=== PATIENT | male | born 1955 | race Caucasian/White ===

== ENCOUNTER → 2023-09-05 15:50 | Outpatient (REF) | payer MEDICARE, OTHER, SELFPAY | LOC: HWRAD 15:50 | PROVIDERS: ATTENDING PHYSICIAN Internal Medicine Rheumatology; FAMILY PHYSICIAN Family Medicine | DX: M19.079 Primary osteoarthritis, unspecified ankle and foot (principal) | CPT/HCPCS: 73630 ==

== ENCOUNTER 2023-09-29 10:50 | Inpatient (IN) | payer MEDICARE, OTHER, SELFPAY ==
[2023-09-29] VITALS (27 sets, daily range): BP systolic 90–142; BP diastolic 72–111
--- NOTE | 2023-09-29 06:32 | ED.GENMED ---
History of Present Illness
General
Chief Complaint: Heart Rate Problem
Source: patient and family
Exam Limitations: none
Time Seen by Provider: 09/29/23 06:31
Travel History
Have you had any contact with someone who has COVID-19?: No
Do you have any symptoms of coronavirus? Fever > 100 degrees, chills, cough, shortness of breath, sore throat, loss of taste or smell, muscle aches, or headache?: No
History of Present Illness
History of Present Illness:
Relatively sudden onset of heart racing palpitations and chest pressure lightheadedness at 5-5 30 this morning. No history of similar episodes. Remote history of MD with 3 cardiac stents. Also history of a ablation for PVCs. Patient states he
went into cardiac arrest during his MD and also went into cardiac arrest during a cardiac cath.
Past History
Past History
ED Past Medical History: Arrthythmia, CAD, Hypercholesterolemia and MD
ED Past Surgical History: Cardiac (Cardiac catheterization) and Other (Hernia repair, retinal detachment, cataracts)
Social History
Employment: Employed
Review of Systems
Review of Systems
All Other Systems: Not applicable
Constitutional: Denies fever
Respiratory: Reports no symptoms
ABD/GI: Reports no symptoms
Phy Exam
Physical Exam
Physical Exam:
GENERAL: Alert and oriented in no apparent distress
EYE: Orbits normal.
NECK: Supple, no thyroid palpable
ENT: Pharynx without erythema
CARDIAC: Irregular irregular. Tachycardic
LUNGS: Clear breath sounds,normal
ABDOMEN: Soft, without focal tenderness or distention
NEUROLOGICAL: Alert and oriented , grossly non-focal
SKIN: Warm and dry, no rash or lesion, no discoloration, skin intact.
MUSCULOSKELETAL: No edema,no deformity.Good color
PSYCH: Normal and appropriate interaction.
Course
Orders/Labs/Results
Orders:
Orders
09/29/23 06:23
ECG [Electrocardiogram (*1)] Urgent
Reason for Study: Palpitations
EKG- Treatment ONCE
09/29/23 06:34
Cardiac Monitoring- Treatment ONCE
IV Insert/Care/Rem.- Treatment PRN
09/29/23 06:37
Complete Blood Count/With Diff Urgent
Comprehensive Metabolic Panel Urgent
NT-proBNP Urgent
TSH Reflex To Free T4 Urgent
Comment: ADD ON
Troponin I Urgent
09/29/23 06:44
Add On- LAB Urgent
Tests Added?: tsh reflex t4
09/29/23 07:12
Diltiazem 125 mg/125 ml Nss [Cardizem] 125 mg in 125 ml IV NOW
Initial dose in mg/hr, then titrate:: 5
Titrate to keep:: Heart rate 80-100 bpm
Titrate by mg/hr:: 5 mg/hr
Frequency of titrations (minutes):: 15
Maximum dose in mg/hr:: 15
Diltiazem HCl [Cardizem] 10 mg IV NOW STA
09/29/23 07:56
CXR Port [CR Chest Portable - 1 View] Urgent
Comment:
Reason For Exam: sob afib
Reason Study Needs to be Portable: Unable to Transport
09/29/23 09:08
Furosemide [Lasix] 20 mg IV NOW STA
09/29/23 10:34
Admit/Transfer Patient As Directed
Co-Sign Provider:
Level of Care: Inpatient admission
Assign to:: IVU
Physician / Group: chacorta boyce
Diagnosis: New onset atrial fibrillation, possible CHF
Reason for Hospitalization: New onset atrial fibrillation, possible CHF
Expected length of stay greater than two midnights?: Yes
ELOS- Estimated Length of Stay in days: 3
I certify the patient meets the requirements for IP care: Yes
09/29/23 10:37
Code Status As Directed
Resuscitation Status: Full Code
09/29/23 10:39
EKG [Electrocardiogram (*1)] Urgent
Reason for Study: Atrial Fibrillation
Echo 2D/M Color Dop w Definity Routine
Reason for Exam: New onset A-fib
CARDIOLOGY CONSULT Urgent
Consulting Provider: Storm Flores
Was physician already notified: Yes
Reason for consult: Contacted by ED
EKG- Treatment ONCE
09/29/23 10:45
Diltiazem 125 mg/125 ml Nss [Cardizem] 125 mg in 125 ml IV PER PROTOCOL
Currently infusing. Continue current dose and titrate:: Yes
Titrate to keep:: Heart rate 80-100 bpm
Titrate by mg/hr:: 5 mg/hr
Frequency of titrations (minutes):: 15
Maximum dose in mg/hr:: 15
09/29/23 11:00
Flush (0.9% Sodium Chloride) [Flush (Nss)] See Dose Instructions IV PER PROTOCOL
09/29/23 11:44
Troponin I Q4H
09/29/23 14:45
Troponin I Q4H
Abnormal Lab Results
09/29/23
06:37
RBC 4.36 L 10^6/uL
(4.70-6.10)
MCV 94.7 H fL
(80.0-94.0)
MCH 31.4 H pg
(27.0-31.0)
MPV 10.5 H fL
(7.4-10.4)
Absolute Lymphs (auto) 1.0 L 10^3/uL
(1.2-3.4)
Neutrophils % 76.1 H %
(42.2-75.2)
Lymphocytes % 15.7 L %
(20.5-51.1)
Chloride 109 H mmol/L
(98-107)
BUN 25 H mg/dl
(9-20)
Glucose 132 H mg/dl
(70-99)
09/29/23 06:37
09/29/23 06:37
Vital Signs
Initial and Last Documented VS:
Initial Vital Signs
Temp Pulse Resp BP Pulse Ox
98.2 F 61 16 142/83 98
09/29/23 06:19 09/29/23 06:19 09/29/23 06:19 09/29/23 06:19 09/29/23 06:19
Last Documented Vital Signs
Temp Pulse Resp BP Pulse Ox
98.2 F 91 12 134/108 92
09/29/23 06:19 09/29/23 12:30 09/29/23 12:30 09/29/23 11:15 09/29/23 12:30
MDM/Problems Addressed
Differential Diagnosis Includes:
Atrial fibrillation/RVR. Decision on rate control ultimately cardioversion. Workup in progress. Discussed with cardiology.
*Pulse Oximetry
Patient hypoxic: no
*EKG
Interpreted by ED Provider?: Yes
Interpretation: abnormal
Comparison EKG: changes noted
Heart Rate: 158
Rate: tachycardiac
Rhythm: a-fib
[place]: normal axis
Interval: normal interval
QRS Pattern: normal QRS
Ischemia: non-specific ST changes
*Critical Care Note
Total Time (30-74mins, 75-104mins- exclusive of procedures): 45
Data Reviewed
Review of Other/Old Records Reveals: Labs, Records and Testing
Update Note
Update Note:
0715.... Discussed with cardiology. Start Cardizem and Cardizem drip and they will evaluate
0758.... Blood pressure dropped to 90 after increasing the Cardizem to 10 mg/h. We will decrease it back to 5 mg/h give a fluid bolus. Chest x-ray pending.
ED Attending Note
-
Portions of this chart may have been created with voice recognition software.� Occasional wrong word or��sound alike� substitutions may have occurred due to the inherent limitations of voice recognition software.
Discharge Plan
Departure
Patient Disposition: Admit
Date of Disposition: 09/29/23
Time of Disposition: 09:08
Presentation/result/management discussed w/ accepting MD/DO: Cardiology
Discharge Problem:
Atrial fibrillation/RVR, Mild CHF, Chest tightness/history of CAD
Interventions
Interventions:
*Risk Screen - Suicide Last Done: 09/29/23 06:19
*Neglect/Abuse Screening Last Done: 09/29/23 06:19
*ED COVID-19 Vaccine History Last Done: 09/29/23 06:19
ED- Cardiac Assessment Last Done: 09/29/23 06:40
ED- Pulmonary Assessment Last Done: 09/29/23 06:40
[2023-09-29 06:56] LABS: % Basophils 0.2 % (0-2); % Eosinophils 0.2 % (0-6); % Immature Granulocytes 0.5 % (0-0.5); % Lymphocytes 15.7 % (20.5-51.1); % Monocytes 7.3 % (1.7-9.3); % Neutrophils 76.1 % (42.2-75.2); Absolute Monocytes 0.4 10^3/uL (0.1-0.6); Absolute Neutrophils 4.6 10^3/uL (1.4-6.5); Hematocrit 41.3 % (39.0-52.0); Hemoglobin 13.7 g/dL (13.0-18.0); Mean Corp Hgb Conc. 33.2 g/dL (33.0-37.0); Mean Corpuscular Hgb 31.4 pg (27.0-31.0); Mean Corpuscular Volume 94.7 fL (80.0-94.0); Mean Platelet Volume 10.5 fL (7.4-10.4); Nucleated Red Blood Cells % 0 % (-); Platelet Count 135 10^3/uL (130-400); Red Blood Cell Count 4.36 10^6/uL (4.70-6.10); Red Cell Dist. Width 14.4 % (11.5-14.5)
[2023-09-29 07:08] LABS: ALT (SGPT) 37 U/L (0-50); AST (SGOT) 34 U/L (17-59); Albumin 3.5 g/dl (3.5-5.0); Alkaline Phosphatase 105 U/L (38-126); Blood Urea Nitrogen 25 mg/dl (9-20); Calcium 9.3 mg/dl (8.4-10.2); Carbon Dioxide 24 mmol/L (22-30); Chloride 109 mmol/L (98-107); Estimated Creatinine Clearance 91 ml/min; Glucose 132 mg/dl (70-99); Potassium 4.3 mmol/L (3.5-5.1); Sodium 138 mmol/L (135-145); Total Bilirubin 0.7 mg/dl (0.2-1.3); Total Protein 6.3 g/dl (6.3-8.2); eGFR > 60.00
[2023-09-29 07:19] LABS: NT-proBNP 1090 pg/ml; Troponin I < 0.012 ng/ml
[2023-09-29] MEDS: CARDIZEM 10 MG IV (07:20)
[2023-09-29] MEDS: CARDIZEM 125 IV (07:24)
[2023-09-29 07:39] LABS: TSH Reflex To Free T4 2.44 uIU/ml (0.47-4.68)
[2023-09-29] MEDS: LASIX 20 MG IV (10:03)
--- NOTE | 2023-09-29 10:39 | HPS.HSE ---
Family Physician
-
Family Physician: Tomy Villarreal
Chief Complaint
-
Palpitations, chest pain
History of Present Illness
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 However per patient he has been feeling chest
discomfort from past few days and has been taking multiple nitros. Denies any radiation. Denies any shortness of breath. Denies any abdominal pain, nausea, vomiting, diarrhea, constipation. In the ED today he was found to be in atrial
fibrillation with RVR. Currently denies any fever/chills.
Medical History
Past Medical History
Past Medical History: Reports Arrhythmia, CAD, HTN, Hypercholesterolemia and CA
Past Surgical History: Reports Cardiac and Other (Hernia repair, cataract, retinal detachment)
Social History
Tobacco: Non-smoker
Family History
Family History: Not pertinent
Allergies / Home Medications
Allergies reflects when Allergies were last updated in [employer].
Home Medications with original date entered in [employer]
Allergy/Medication List:
Allergies
Allergy/AdvReac Type Severity Reaction Status Date / Time
streptokinase Allergy fever,peric Verified 09/29/23 06:18
arditis
Home Medications
atorvastatin 80 mg tablet 80 mg PO QPM High Cholesterol 05/28/14
coenzyme Q10 100 mg capsule (CoQ-10) 100 mg PO QPM Supplement 05/28/14
aspirin 81 mg tablet,delayed release 81 mg PO DAILY Blood Clot Prevention/Tx 11/22/14
nitroglycerin 0.4 mg sublingual tablet 0.4 mg sublingual G8VO4OHP PRN chest pain 11/22/14
ramipril 5 mg capsule 5 mg PO QPM Blood Pressure 11/22/14
alirocumab 75 mg/mL subcutaneous pen injector (Praluent Pen) 150 mg SQ Q2W High Cholesterol 06/05/20
allopurinol 300 mg tablet 300 mg PO QPM Gout 06/05/20
cholecalciferol (vitamin D3) 50 mcg (2,000 unit) tablet 2,000 units PO DAILY Supplement 06/05/20
resveratrol 100 mg capsule 100 mg PO DAILY Supplement 06/05/20
colchicine 0.6 mg capsule 0.6 mg PO QPM Gout 12/20/22
isosorbide mononitrate 120 mg tablet,extended release 24 hr 120 mg PO DAILY Heart Condition 12/20/22
lactobacillus combination no.4 3 billion cell capsule (Probiotic) 3,000 mmu cells PO DAILY Gastrointestinal Issue 05/16/23
metoprolol succinate 100 mg tablet,extended release 24 hr 100 mg PO DAILY Heart Disease/Condition 05/16/23
prednisone 20 mg tablet 20 mg PO DAILY PRN arthritis flare ups 05/16/23
tamsulosin 0.4 mg capsule (Flomax) 0.4 mg PO BID Urinary Issue 05/16/23
multivitamin 1 tab PO DAILY Supplement 05/30/23
fluticasone propionate 50 mcg/actuation nasal spray,suspension 1 spray intranasal DAILY Congestion 09/29/23
levothyroxine 25 mcg tablet (Synthroid) 25 mcg PO HS Thyroid 09/29/23
naproxen sodium 220 mg tablet (Aleve) 220 mg PO [id number] PRN mild pain 09/29/23
pantoprazole 40 mg tablet,delayed release 40 mg PO DAILY Gastrointestinal Issue 09/29/23
psyllium 1 packet PO DAILY Constipation 09/29/23
Review of Systems
-
History Source: Patient
A 12 point ROS was completed and negative except as noted: Yes
Cardiac: Reports Chest Pain and Palpitations
Physical Exam
Vital Signs
Vital Signs
Temp Pulse Resp BP Pulse Ox
98.2 F 97 17 123/95 94
09/29/23 06:19 09/29/23 10:15 09/29/23 10:15 09/29/23 10:15 03/28/24 10:15
Physical Exam
General: Well Nourished and No Apparent Distress
HEENT: NormoCephalic and Moist mucous membranes
Respiratory: Clear and Non Labored Respirations; No Wheezes
Cardiac: S1/S2, Irregular Rhythm and Tachycardia
Breast: Deferred by me
GI: Soft, Non Tender, Non Distended and Normal Bowel Sounds
Rectal: Deferred by Provider
Genito-urinary: No Lennon
Musculoskeletal: Edema, Left Lower Extremity and Edema, Right Lower Extremity
Neuro: Awake, Alert, Oriented and AO x 3
Psych: Calm and Intact Judgment/Insight
Laboratory Results
-
09/29/23 06:37
09/29/23 06:37
Laboratory Results
Total Bilirubin 0.7 mg/dl (0.2-1.3) 09/29/23 06:37
AST 34 U/L (17-59) 09/29/23 06:37
ALT 37 U/L (0-50) 09/29/23 06:37
Alkaline Phosphatase 105 U/L (38-126) 09/29/23 06:37
Troponin I < 0.012 ng/ml 09/29/23 06:37
Data Reviewed
-
Lab Data: Labs Reviewed by me and Discussed with Patient
Impression/Plan
-
New onset atrial fibrillation with RVR
Currently on diltiazem drip
Cardiology consulted in ED; seen by Dr Flores per ER
TSH wnl
CHADVASC 3 ; hold starting heparin, defer to cardiology
Check echo
Hold metoprolol
Chest pain; r/o ACS
trend trops
nitro prn
New onset CHF; unknown EF
check echo
likely 2/2 afib
last echo in 2022 with preserved EF
IV lasix given in ED; cw IV lasix
hx of PVC with recent ablation
hx of CA s/p 3 stents
cw aspirin
History of hypertension
Continue with Imdur, lisinopril
History of Bechet's
History of gout
On allopurinol, colchicine
hx of hypothyroidism
DVTppx
heparin
Full code
I spent a total of 77 minutes with the patient or on the floor. More than 50% of this time involved counseling and coordination of care.
[2023-09-29 12:19] LABS: Troponin I < 0.012 ng/ml
--- NOTE | 2023-09-29 13:21 | W.PN.CD ---
Today's Communication / Plan
-
Consult dictated
Will need evaluation of pericardial effusion,
- may be best to tap it
- and then in 2 weeks if no recurrence of effusion add Eliquis
Double metoprolol (AFib and angina control)
Pt prefers to seek early AFib ablation which is very reasonable
Impression / Plan
-
New PAF
New large pericardial effusion
Chronic CAD with stable angina
Severe hyperlipidemia
Prior PVC ablation, 05/30/2023
Physical Exam
Vital Signs/Labs
Vital Signs
Temp Pulse Resp BP Pulse Ox
98.2 F 91 12 134/108 92
09/29/23 06:19 09/29/23 12:30 09/29/23 12:30 09/29/23 11:15 09/29/23 12:30
09/28/23 09/29/23 09/30/23
06:59 06:59 06:59
Actual Weight 94.9 kg
09/29/23 06:37
09/29/23 06:37
APTT Cancelled 09/29/23 12:34
09/29/23
06:37
Kbj-[id number] Pept 1090
LAB Results
09/29/23 09/29/23
06:37 11:44
Troponin I < 0.012 < 0.012
Data Reviewed
-
Date of Service: September 29, 2023
--- NOTE | 2023-09-29 14:00 | PTCARENOTE ---
pt report received from ER, oriented x4. SR w/ PVCs on the monitor, HR 90s. cardizem gtt @5mg/hr. SBP 120s. palpable pulses. +1/+2 ankle edema, R>L. pt states that is his baseline. pt on RA, 95-96% POX. lungs clear. pt abdomen s/n, +BS. denies n/v.
denies CP or SOB. PIV. admission interview completed. see worklist for VS, I&O, and assessment.
--- NOTE | 2023-09-29 14:20 | W.PN.UPDATE ---
Update Note
Progress Note Update
Discussed with patient and interventional cardiology. Plan for pericardiocentesis in AM. Increase colchicine to twice daily.
[2023-09-29] MEDS: COLCHICINE 0.599999999999999978 MG PO ×2 (14:39→20:17)
[2023-09-29 15:56] LABS: Troponin I < 0.012 ng/ml
--- NOTE | 2023-09-29 17:17 | CM ---
spoke to pt in room, he is prev indep, lives with his partner in a 1 story home with no steps to enter. he denies any dc planning needs or dme's. plan is for dc to home when medically stable.
[2023-09-29] MEDS: ZYLOPRIM 300 MG PO (17:27)
[2023-09-29] MEDS: ALTACE 5 MG PO (17:27)
[2023-09-29] MEDS: LIPITOR 80 MG PO (17:27)
[2023-09-29] MEDS: FLOMAX 0.400000000000000022 MG PO (20:17)
[2023-09-29] MEDS: TOPROL XL 100 MG PO (20:18)
[2023-09-29] MEDS: SYNTHROID 25 MCG PO (22:25)
--- NOTE | 2023-09-29 22:55 | PTCARENOTE ---
assumed care of patient at the change of shift. AAOx3. independent in the room. denies any cp/sob. SR on tele with frequent PVCs, bigeminy at times. patient states feeling PVCs. HR 80s-90s. bp stable. cardizem gtt maintained at 5 ml/hr. reviewed
plan of care with patient and verbalized understanding. NPO at midnight for a pericardiocentesis in AM. call aden within reach. calls appropriately.
[2023-09-30] VITALS (7 sets, daily range): BP systolic 98–121; BP diastolic 74–88; BMI 28.8
[2023-09-30] MEDS: CARDIZEM 125 IV (03:59)
[2023-09-30 04:37] LABS: % Basophils 0.3 % (0-2); % Eosinophils 2.4 % (0-6); % Immature Granulocytes 0.3 % (0-0.5); % Lymphocytes 25.6 % (20.5-51.1); % Monocytes 12.8 % (1.7-9.3); % Neutrophils 58.6 % (42.2-75.2); Absolute Eosinophils 0.1 10^3/uL (0-0.7); Absolute Lymphocytes 1.5 10^3/uL (1.2-3.4); Absolute Monocytes 0.8 10^3/uL (0.1-0.6); Absolute Neutrophils 3.4 10^3/uL (1.4-6.5); Hematocrit 41.6 % (39.0-52.0); Hemoglobin 13.8 g/dL (13.0-18.0); Mean Corp Hgb Conc. 33.2 g/dL (33.0-37.0); Mean Corpuscular Hgb 31.3 pg (27.0-31.0); Mean Corpuscular Volume 94.3 fL (80.0-94.0); Mean Platelet Volume 10.1 fL (7.4-10.4); Nucleated Red Blood Cells % 0 % (-); Platelet Count 128 10^3/uL (130-400); Red Blood Cell Count 4.41 10^6/uL (4.70-6.10); Red Cell Dist. Width 14.4 % (11.5-14.5); White Blood Cell Count 5.9 10^3/uL (4.8-10.8)
[2023-09-30 04:58] LABS: Blood Urea Nitrogen 19 mg/dl (9-20); Calcium 8.8 mg/dl (8.4-10.2); Carbon Dioxide 26 mmol/L (22-30); Chloride 104 mmol/L (98-107); Estimated Creatinine Clearance 81 ml/min; Glucose 109 mg/dl (70-99); Potassium 3.7 mmol/L (3.5-5.1); Sodium 139 mmol/L (135-145); eGFR > 60.00
[2023-09-30] MEDS: FLOMAX 0.400000000000000022 MG PO ×2 (08:03→19:33)
[2023-09-30] MEDS: VISBIOME 1 CAP PO (08:03)
[2023-09-30] MEDS: ASPIR LOW (ENTERIC COATED) 81 MG PO (08:03)
[2023-09-30] MEDS: IMDUR (EXTENDED RELEASE) 120 MG PO (08:03)
[2023-09-30] MEDS: TOPROL XL 100 MG PO ×2 (08:03→19:33)
[2023-09-30] MEDS: PROTONIX 40 MG PO (08:03)
[2023-09-30] MEDS: THERAGRAN 1 TABLET PO (08:03)
[2023-09-30] MEDS: VITAMIN D3 (cholecalciferol) 50 MCG PO (08:04)
[2023-09-30] MEDS: COLCHICINE 0.599999999999999978 MG PO ×2 (08:04→19:33)
[2023-09-30] MEDS: METAMUCIL, KONSYL PO (08:15)
--- NOTE | 2023-09-30 09:07 | PTCARENOTE ---
received patient this am, IV Cardizem @ 5cc/hr via left arm, site reddened, IV team started new INT in left arm, IV Cardizem infusing without difficulties. patient remains NPO for pericardial drain this am.
[2023-09-30] MEDS: PERCOCET 5/325 2 TABLET PO ×3 (10:10→22:35)
[2023-09-30] MEDS: MOTRIN 600 MG PO ×2 (10:10→19:33)
--- NOTE | 2023-09-30 10:17 | ITS.CL.PN ---
Certified Procedural Coder - Procedure Note
Procedure
Procedure Note:
PERICARDIOCENTESIS REPORT
Date of Procedure: 09/30/2023
Referring: Darvin Mendoza MD, PhD
Indication: Moderate unexplained pericardial effusion noted after presentation with new AF. Patient underwent PVC ablation May 2023
PROCEDURE SUMMARY:
Successful pericardiocentesis via subxiphoid approach with removal of 220 mL bloody pericardial fluid
DESCRIPTION OF PROCEDURE: A standard 7 cm micropuncture needle did not reach the pericardial space from a standard subxiphoid approach. A 9 cm micropuncture needle successfully entered the pericardium on the first attempt. A 6 Spanish sheath was
placed in the pericardium followed by a pigtail catheter. Intrapericardial pressure was 10 mmHg. Agitated contrast injection show to the catheter to be in the pericardial space. 220 mL of bloody pericardial fluid was removed. Hemoglobin less
than 4. At the conclusion of the procedure there was almost no visible fluid by echo. The pericardial pressure remained in the 8-10 mmHg range. Fluid was sent for the usual suspects with the bulk of the fluid sent to cytology. The pigtail
catheter was secured in place and the patient transferred back to the IVU with the drain under suction.
Complications: None
Radiation (mGy): 37
DAP (cm2.Gy): 3.8
Fluoroscopy time: 0.9 minutes
CONCLUSIONS: Successful pericardiocentesis with removal of 220 mL bloody pericardial fluid. Drain was left in place. We will evaluate drainage later today to decide whether drain can be removed. Colchicine 0.6 mg twice daily for 3 months is
planned and will treat with tapering dose of ibuprofen- 600mg bid x 3 days then 400mg bid x 3 days then 200 mg bid x 3 days then 200mg qd x 3 days. Following tapering course of NSAIDs, oral anticoagulation can be started (for new AF) as long as
there has not been significant reaccumulation of the pericardial effusion
Copy to: Alisa Platt MD, Tomy Villarreal MD ([place], [place])
Gian Triana MD, [facility], [facility]
--- NOTE | 2023-09-30 10:19 | PTCARENOTE ---
patient returned with substernal pericardial drain with blood noted in container. patient c/o bilat. shoulder pain, Motrin and Percocet po given as ordered. D/C'd IV cardizem as per Dr. Triana.
[2023-09-30 10:50] LABS: Body Fluid Hematocrit 1.5 %
[2023-09-30 11:02] LABS: Body Fluid Glucose 82 mg/dl; Body Fluid Protein 4.5 g/dl
[2023-09-30 12:16] LABS: Body Fluid LDH 2028 U/L
[2023-09-30 12:24] LABS: Body Fluid Granulocytes 9 %; Body Fluid Lymphocytes 81 %; Body Fluid Macrophages 10 %; Body Fluid WBC 2365 /CUMM
[2023-09-30 12:28] LABS: Body Fluid Second Tech CF
--- NOTE | 2023-09-30 12:55 | W.PN.HOSP.TC ---
Today's Communication/Plan
-
Monitor vital signs and see plan
Continue with metoprolol
Pericardial drain per cardiology
Continue with colchicine, ibuprofen
Assessment / Plan
Assessment / Plan
General: Well Nourished and No Apparent Distress
HEENT: NormoCephalic and Moist mucous membranes
Respiratory: Clear and Non Labored Respirations; No Wheezes
Cardiac: S1/S2, regular Rhythm
GI: Soft, Non Tender, Non Distended and Normal Bowel Sounds
Genito-urinary: No Lennon
Musculoskeletal: Edema, Left Lower Extremity and Edema, Right Lower Extremity
Neuro: Awake, Alert, Oriented and AO x 3
Psych: Calm and Intact Judgment/Insight
New onset atrial fibrillation with RVR
Now in normal sinus rhythm with PVCs
Cardiology following
TSH wnl
CHADVASC 3 ; hold starting anticoagulation given pericardial effusion
Echo 09/28 with large pericardial effusion. Status post pericardiocentesis 09/29 with removal of 220 cc bloody pericardial fluid. Currently has pericardial drain. Plan for colchicine 0.6 mg twice daily for 3 months. Tapering ibuprofen. Cardiology
will follow-up with patient and if no significant reaccumulation of pericardial effusion then anticoagulation can be started for new A-fib
Hold metoprolol
Does not appear to be in CHF, suspect elevated BNP
Chest pain likely secondary to A-fib
Resolved
New onset CHF with preserved EF
Echo with preserved EF however did show pericardial effusion
likely 2/2 afib
last echo in 2022 with preserved EF
lasix stopped by cardiology
hx of PVC with recent ablation
hx of SD s/p 3 stents
cw aspirin
History of hypertension
Continue with Imdur, lisinopril; now on toprol
History of Bechet's
History of gout
On allopurinol, colchicine
hx of hypothyroidism
DVTppx
SCD's
Full code
I spent a total of 52 minutes with the patient or on the floor. More than 50% of this time involved counseling and coordination of care.
Anticipated Discharge: 24 - 48 hours
Subjective/Interval History
-
Date of Service: September 30, 2023
Denies nausea
Objective Data
-
Labs:
Laboratory Results
09/30/23
03:58
WBC 5.9
Hgb 13.8
Hct 41.6
Plt Count 128 L
Sodium 139
Potassium 3.7
Chloride 104
Carbon Dioxide 26
BUN 19
Creatinine 0.9
Glucose 109 H
Calcium 8.8
Vital Signs:
Vital Signs
Temp Pulse Resp BP Pulse Ox
97.7 F 92 16 114/76 95
09/30/23 11:34 09/30/23 12:00 09/30/23 11:34 09/30/23 11:34 09/30/23 11:34
I&O
09/29/23 09/30/23 10/01/23
06:59 06:59 06:59
Intake Total 475 / 475
Balance 475 / 475
--- NOTE | 2023-09-30 14:35 | W.PN.CD ---
Today's Communication / Plan
-
pericardial drain to be removed today if minimal output otherwise will reevaluate drain tomorrow
Plan colchicine 0.6 BID for 3 months (he typically takes it one time daily chronically)
NSAID at doses ordered for 2 weeks (Dr. Triana chose a tapering schedule)
Will plan echo in 2 weeks and if no effusion then start Eliquis 5 bid
Continue the increased metoprolol ER 100 bid (has tolerated that dose in the past)
Add Propranolol IR 20 mg q 4hrs prn breakthrough palps/AFib
55 min spent caring for pt: discussions with Dr. Triana, medical team, reviewing more records, coordinanting care, creating document, time with pt.
Impression / Plan
-
New PAF
New large pericardial effusion
- S/p tap
- Now on increased colchicine and tapering NSAID
Chronic CAD with stable angina
- Now on increased metoprolol
Severe hyperlipidemia
Prior PVC ablation, 05/30/2023
Physical Exam
Vital Signs/Labs
Vital Signs
Temp Pulse Resp BP Pulse Ox
97.7 F 92 16 114/76 95
09/30/23 11:34 09/30/23 12:00 09/30/23 11:34 09/30/23 11:34 09/30/23 11:34
09/29/23 09/30/23 10/01/23
06:59 06:59 06:59
Actual Weight 94.9 kg 90.9 kg
09/30/23 03:58
09/30/23 03:58
APTT Cancelled 09/29/23 12:34
09/29/23
06:37
[id number] Pept 1090
LAB Results
09/29/23 09/29/23 09/29/23
06:37 11:44 15:14
Troponin I < 0.012 < 0.012 < 0.012
Physical Exam
Constitutional: No acute distress
EENT: Anicteric
Cardiovascular: Rhythm & rate is regular and Pedal edema is absent
Respiratory: Respiratory effort normal and Lungs clear to auscul.
GI: Soft and Distention absent
Neuro/Psych: AO x 3
Data Reviewed
-
Date of Service: September 30, 2023
--- NOTE | 2023-09-30 15:22 | PTCARENOTE ---
patient c/o pericardial drain site pain, 5 out of 10, Percocet po given as ordered.
--- NOTE | 2023-09-30 16:08 | PTCARENOTE ---
Dr. Triana in room, pericardial drain has serous drainage, doctor will pull drain in am.
[2023-09-30] MEDS: ZYLOPRIM 300 MG PO (17:21)
[2023-09-30] MEDS: ALTACE 5 MG PO (17:22)
[2023-09-30] MEDS: LIPITOR 80 MG PO (17:22)
[2023-09-30] MEDS: METAMUCIL, KONSYL 1 PACKET PO (17:23)
--- NOTE | 2023-09-30 20:49 | PTCARENOTE ---
Pt received at start of shift, HR SR w/ occasional PVCs 80s-100s. Pericardial drain in place, dressing CDI, sanguineous drainage noted in drain. Plan of care reviewed w/ pt. Pt states no questions at this time. Pt c/o 09/10 pain at insertional site,
scheduled motrin administered, pt refusing any other pain medicine at this time. Pt denies any worsening/radiating CP, SOB, or lightheadedness/dizziness. Informed to notify RN if any changes, call aden within reach.
[2023-09-30] MEDS: SYNTHROID 25 MCG PO (22:35)
[2023-10-01 04:13] VITALS: BP 122/82
[2023-10-01 04:42] VITALS: BMI 28.9
[2023-10-01 04:57] LABS: % Basophils 0.2 % (0-2); % Eosinophils 2.6 % (0-6); % Immature Granulocytes 0.5 % (0-0.5); % Monocytes 13.7 % (1.7-9.3); Absolute Eosinophils 0.2 10^3/uL (0-0.7); Absolute Lymphocytes 1.5 10^3/uL (1.2-3.4); Absolute Monocytes 0.9 10^3/uL (0.1-0.6); Absolute Neutrophils 3.9 10^3/uL (1.4-6.5); Hematocrit 40.3 % (39.0-52.0); Hemoglobin 13.8 g/dL (13.0-18.0); Mean Corp Hgb Conc. 34.2 g/dL (33.0-37.0); Mean Corpuscular Hgb 31.4 pg (27.0-31.0); Mean Corpuscular Volume 91.8 fL (80.0-94.0); Mean Platelet Volume 9.9 fL (7.4-10.4); Nucleated Red Blood Cells % 0 % (-); Platelet Count 141 10^3/uL (130-400); Red Blood Cell Count 4.39 10^6/uL (4.70-6.10); Red Cell Dist. Width 14.6 % (11.5-14.5); White Blood Cell Count 6.4 10^3/uL (4.8-10.8)
[2023-10-01 05:10] LABS: Blood Urea Nitrogen 19 mg/dl (9-20); Calcium 8.8 mg/dl (8.4-10.2); Carbon Dioxide 27 mmol/L (22-30); Chloride 103 mmol/L (98-107); Estimated Creatinine Clearance 91 ml/min; Glucose 112 mg/dl (70-99); Potassium 4.2 mmol/L (3.5-5.1); Sodium 136 mmol/L (135-145); eGFR > 60.00
[2023-10-01 07:49] VITALS: BP 122/85
[2023-10-01] MEDS: METAMUCIL, KONSYL 1 PACKET PO (08:02)
[2023-10-01] MEDS: COLCHICINE 0.599999999999999978 MG PO (08:03)
[2023-10-01] MEDS: FLOMAX 0.400000000000000022 MG PO (08:03)
[2023-10-01] MEDS: ASPIR LOW (ENTERIC COATED) 81 MG PO (08:03)
[2023-10-01] MEDS: MOTRIN 600 MG PO (08:04)
[2023-10-01] MEDS: THERAGRAN 1 TABLET PO (08:04)
[2023-10-01] MEDS: VISBIOME 1 CAP PO (08:04)
[2023-10-01] MEDS: PROTONIX 40 MG PO (08:04)
[2023-10-01] MEDS: VITAMIN D3 (cholecalciferol) 50 MCG PO (08:05)
[2023-10-01] MEDS: TOPROL XL 100 MG PO (08:05)
--- NOTE | 2023-10-01 09:55 | W.PN.CD ---
Today's Communication / Plan
-
pericardial drain was just taken out by me just now with negative pressure. Tegaderm to stay on for 2 days.
OK for home in 2-3 hrs
Plan colchicine 0.6 BID for 3 months (he typically takes it one time daily chronically)
NSAID at doses ordered for 2 weeks (Dr. Triana chose a tapering schedule)
Echo in 2 weeks and if no effusion then start Eliquis 5 bid
Continue the increased metoprolol ER 100 bid (has tolerated that dose in the past)
Added Propranolol IR 20 mg q 4hrs prn breakthrough palps/AFib
Impression / Plan
-
New PAF => converted to sinus on day he presented to ER
New large pericardial effusion
- S/p tap
- Now on increased colchicine and tapering NSAID
- No drainage overnight => I removed the drain just now.
Chronic CAD with stable angina
- Now on increased metoprolol
Severe hyperlipidemia
Prior PVC ablation, 05/30/2023
Physical Exam
Vital Signs/Labs
Vital Signs
Temp Pulse Resp BP Pulse Ox
97.7 F 98 18 122/85 96
10/01/23 08:16 10/01/23 08:05 10/01/23 08:16 10/01/23 08:05 10/01/23 08:16
09/30/23 10/01/23 10/02/23
06:59 06:59 06:59
Actual Weight 90.9 kg 91.5 kg
10/01/23 04:21
10/01/23 04:21
APTT Cancelled 09/29/23 12:34
09/29/23
06:37
Elx-V-Xglnlvitnya Pept 1090
LAB Results
09/29/23 09/29/23 09/29/23
06:37 11:44 15:14
Troponin I < 0.012 < 0.012 < 0.012
Physical Exam
Constitutional: No acute distress
EENT: Anicteric
Cardiovascular: Rhythm & rate is regular and Pedal edema is absent
Respiratory: Respiratory effort normal and Lungs clear to auscul.
GI: Soft and Distention absent
Data Reviewed
-
Date of Service: October 01, 2023
--- NOTE | 2023-10-01 09:58 | PTCARENOTE ---
Received pt for 7a-7p shift. Pt AAOx3 without complaints. VSS, SR with PVCs and Trigeminy on front desk monitor. Pt with pericardial drain, serosanguineous drainage. Pt denies chest pain, palpitations. Medications administered as ordered. Will continue
to monitor.
[2023-10-01 10:05] VITALS: BP 133/95
[2023-10-01] MEDS: IMDUR (EXTENDED RELEASE) 120 MG PO (10:20)
[2023-10-01 10:31] VITALS: BP 122/88
--- NOTE | 2023-10-01 10:54 | W.PN.HOSP.TC ---
Today's Communication/Plan
-
Monitor vitals
See plan
Seen by cardiology and had pericardial drain taken out
Discharge today
Propranolol for breakthrough palpitation/A-fib
Time of discharge 38-minutes
Assessment / Plan
Assessment / Plan
General: Well Nourished and No Apparent Distress
HEENT: NormoCephalic and Moist mucous membranes
Respiratory: Clear and Non Labored Respirations; No Wheezes
Cardiac: S1/S2, regular Rhythm
GI: Soft, Non Tender, Non Distended and Normal Bowel Sounds
Genito-urinary: No Lennon
Musculoskeletal: Edema, Left Lower Extremity and Edema, Right Lower Extremity
Neuro: Awake, Alert, Oriented and AO x 3
Psych: Calm and Intact Judgment/Insight
New onset atrial fibrillation with RVR
Now in normal sinus rhythm with PVCs
Cardiology following
TSH wnl
CHADVASC 3 ; hold starting anticoagulation given pericardial effusion
Echo 09/28 with large pericardial effusion. Status post pericardiocentesis 09/29 with removal of 220 cc bloody pericardial fluid. pericardial drain dc'ed today. Patient to get follow-up echo outpatient. Plan for colchicine 0.6 mg twice daily for 3
months. Tapering ibuprofen. Cardiology will follow-up with patient and if no significant reaccumulation of pericardial effusion then anticoagulation can be started for new A-fib
cw metoprolol
Does not appear to be in CHF, suspect falsely elevated BNP
Propranolol for breakthrough palpitation/A-fib
Chest pain likely secondary to A-fib
Resolved
Echo with preserved EF however did show pericardial effusion
lasix stopped by cardiology
hx of PVC with recent ablation
hx of VT s/p 3 stents
cw aspirin
History of hypertension
Continue with Imdur, lisinopril; now on toprol
History of Bechet's
History of gout
On allopurinol, colchicine
hx of hypothyroidism
DVTppx
SCD's
Full code
Anticipated Discharge: Today
Subjective/Interval History
-
Date of Service: October 01, 2023
Denies chest tightness
Objective Data
-
Labs:
Laboratory Results
10/01/23
04:21
WBC 6.4
Hgb 13.8
Hct 40.3
Plt Count 141
Sodium 136
Potassium 4.2
Chloride 103
Carbon Dioxide 27
BUN 19
Creatinine 0.8
Glucose 112 H
Calcium 8.8
Vital Signs:
Vital Signs
Temp Pulse Resp BP Pulse Ox
97.8 F 103 18 122/88 96
10/01/23 10:31 10/01/23 10:31 10/01/23 10:31 10/01/23 10:31 10/01/23 10:31
I&O
09/30/23 10/01/23 10/02/23
06:59 06:59 06:59
Intake Total 475 / 475 480 / 480
Output Total 50 / 50 0 / 0
Balance 475 / 475 430 / 430 0 / 0
--- NOTE | 2023-10-01 11:05 | W.DCSUMMARY ---
Discharge Summary
Discharge Data
Date of Admission: 09/29/23
Date of Discharge: 10/01/23
-
Pending Results: No
Hospital Course
68-year-old male with past medical history of Bechet's,, PVC recent ablation, myocardial infarction, hypertension, gout, hypothyroidism came to the hospital with chest tightness secondary to new onset atrial fibrillation with rapid ventricular rate.
Patient was initially started on diltiazem drip however subsequently converted to normal sinus rhythm. Initially decision was taken to start patient on anticoagulation given Everardo Vascor of 3 however echocardiogram showed large pericardial effusion
20 coagulation was held. Patient underwent pericardiocentesis on 09/29 with removal of 220 cc of bloody pericardial fluid. Initially pericardial drain was placed which was taken out prior to the discharge. Patient was started on colchicine along
with tapering ibuprofen. Decision was taken to continue to hold anticoagulation and to follow-up pericardial effusion on discharge. Repeat echocardiogram. Initially patient proBNP was elevated and patient was given Lasix in the ED however patient
did not appear to be in CHF exacerbation so Lasix was stopped. For his atrial fibrillation he was started on propranolol as needed. Once patient symptoms continue to improve, he was then discharged home with instructions to follow-up with all his
physicians outpatient.
Discharge Plan
-
Patient Disposition: Home (Routine Discharge)
Discharge Diagnosis/Procedures: New paroxysmal atrial fibrillation
New large pericardial effusion
Chronic coronary artery disease with stable angina
Diet: As tolerated
Activity: As tolerated
Driving Restrictions: As prior to admission
Bathing Restrictions: None
Others Tests: Repeat echo scheduled for October 13 at [facility]- please arrive at 11 AM or earlier for 11:15 AM study
Activity Restrictions/Additional Instructions:
Ibuprofen 600mg bid x 2 days then 400mg bid x 3 days then 200 mg bid x 3 days then 200mg qd x 3 days
Colchicine 0.6 mg twice daily for 3 months and then can go back to your usual dose daily at night
Referrals:
Misty Senior NP [Specified Professional Personl] - 10/17/23 9:00 am
Tomy Villarreal MD [Family Provider] - in less than 1 week
Prescriptions:
New
ibuprofen 200 mg Tablet
600 mg PO BID Qty: 60 0RF
Rx Instructions:
600mg bid x 2 days then 400mg bid x 3 days then 200 mg bid x 3 days then 200mg qd x 3 days
colchicine 0.6 mg Tablet
0.6 mg PO BID Qty: 60 0RF
propranolol 20 mg Tablet
20 mg PO Q4 PRN (Reason: AFib) Qty: 30 0RF
Continued
atorvastatin 80 MG tablet
80 mg PO QPM
coenzyme Q10 [CoQ-10] 100 MG capsule
100 mg PO QPM
aspirin 81 MG tablet,delayed release (DR/EC)
81 mg PO DAILY
nitroglycerin 0.4 MG tablet, sublingual
0.4 mg sublingual [id number] PRN (Reason: chest pain)
Patient Comments:
ramipril 5 MG capsule
5 mg PO QPM
allopurinol 300 MG tablet
300 mg PO QPM
cholecalciferol (vitamin D3) 2,000 UNITS tablet
2,000 units PO DAILY
resveratrol 100 MG capsule
100 mg PO DAILY
Praluent Pen 75 MG/ML pen injector
150 mg SQ Q2W
isosorbide mononitrate 120 mg Tablet Extended Release 24 Hr
120 mg PO DAILY
prednisone 20 mg Tablet
20 mg PO DAILY PRN (Reason: arthritis flare ups)
Probiotic 3 billion cell Capsule
3,000 mmu cells PO DAILY
tamsulosin [Flomax] 0.4 mg capsule
0.4 mg PO BID
multivitamin Tablet
1 tab PO DAILY
psyllium Packet
1 packet PO DAILY
levothyroxine [Synthroid] 25 mcg Tablet
25 mcg PO HS
fluticasone propionate 50 mcg/actuation [place],Suspension
1 spray INTRANASAL DAILY
pantoprazole 40 MG tablet,delayed release (DR/EC)
40 mg PO DAILY
Changed
metoprolol succinate 100 mg Tablet Extended Release 24 Hr
100 mg PO BID Qty: 0 0RF
Discontinued
colchicine 0.6 mg Capsule
0.6 mg PO QPM
naproxen sodium [Aleve] 220 mg Tablet
220 mg PO [id number] PRN (Reason: mild pain)
Discharge Orders:
Discharge Patient (As Directed); Ordered 10/01/23
Ordered By: Sg Noel
Care Plan Goals
Care Plan Goals:
Problem: Readiness for enhanced knowledge related to diagnosis and treatment plan
Goal: Understand your diagnosis and treatment plan needs, including medications if applicable.
Instructions: Know your diagnosis, underlying causes and treatment plan options, including medications if applicable. Consult with your health care team to learn about your diagnosis and treatment plan, including medications if applicable.
Discharge Date and Time
Discharge Date/Time: 10/01/23 12:57
Print Language: URDU
--- NOTE | 2023-10-01 12:31 | PTCARENOTE ---
Pericardial drain removed by Dr. Flores, 4x4 and tegaderm dressing applied. Medications and discharge instructions reviewed with patient on discharge. Patient verbalized understanding. PIV and patient monitor removed. Escorted to vehicle in
wheelchair by RN. No issues upon discharge.
== END 2023-10-01 12:57 | disposition home or self-care (01) | DRG 309 ==
LOC: IVU 10:50
PROVIDERS: Internal Medicine; Internal Medicine Cardiovascular Disease; ADMITTING PHYSICIAN Internal Medicine; CONSULT PHYSICIAN Internal Medicine Cardiovascular Disease; EMERGENCY PHYSICIAN Emergency Medicine; FAMILY PHYSICIAN Family Medicine
PROC: 0W9D3ZZ Drainage of Pericardial Cavity, Percutaneous Approach (ICD-10-PCS; 2023-09-30)
DX: I48.0 Paroxysmal atrial fibrillation (principal); I31.39 Other pericardial effusion (noninflammatory); M35.2 Behcet's disease; E78.00 Pure hypercholesterolemia, unspecified; I25.118 Atherosclerotic heart disease of native coronary artery with other forms of angina pectoris; E78.41 Elevated Lipoprotein(a); I25.2 Old myocardial infarction; E03.9 Hypothyroidism, unspecified; M10.9 Gout, unspecified; I10 Essential (primary) hypertension; N40.0 Benign prostatic hyperplasia without lower urinary tract symptoms; Z79.82 Long term (current) use of aspirin; Z79.899 Other long term (current) drug therapy; Z95.5 Presence of coronary angioplasty implant and graft
CPT/HCPCS: 88305; 93308; 33016; 71045; 80048; 80053; 82945; 83615; 83880; 84157; 84443; 84484; 85014; 85025; 87015; 87070; 87102; 87116; 87205; 87206; 88112; 88341; 88342; 89051; 93005; 93307; 96374; 96375; 99291; C1894; Q9957

== ENCOUNTER → 2023-10-14 10:59 | Outpatient (REF) | payer MEDICARE, OTHER, SELFPAY | LOC: RCS 10:59 | PROVIDERS: ATTENDING PHYSICIAN Internal Medicine Cardiovascular Disease | DX: I31.39 Other pericardial effusion (noninflammatory) (principal) | CPT/HCPCS: 93308 ==

== ENCOUNTER → 2023-11-02 11:27 | Outpatient (REF) | payer MEDICARE, OTHER, SELFPAY | LOC: RCS 11:27 | PROVIDERS: ATTENDING PHYSICIAN Internal Medicine Cardiovascular Disease; FAMILY PHYSICIAN Family Medicine | DX: I31.39 Other pericardial effusion (noninflammatory) (principal); I47.20 Ventricular tachycardia, unspecified; I48.0 Paroxysmal atrial fibrillation | CPT/HCPCS: 93308 ==

== ENCOUNTER → 2023-12-19 10:16 | Outpatient (REF) | payer MEDICARE, OTHER, SELFPAY | LOC: HWRAD 10:16 | PROVIDERS: ATTENDING PHYSICIAN Specialist; FAMILY PHYSICIAN Family Medicine | DX: N28.89 Other specified disorders of kidney and ureter (principal) | CPT/HCPCS: 74170; Q9967 ==

== ENCOUNTER → 2025-04-16 15:42 | Outpatient (REF) | payer MEDICARE, OTHER, SELFPAY | LOC: HWRCS 15:42 | PROVIDERS: ATTENDING PHYSICIAN Internal Medicine Cardiovascular Disease; FAMILY PHYSICIAN Family Medicine | DX: I48.0 Paroxysmal atrial fibrillation (principal); I31.39 Other pericardial effusion (noninflammatory) | CPT/HCPCS: 93306 ==

== ENCOUNTER → 2025-05-15 12:30 | Outpatient (REF) | payer MEDICARE, OTHER, SELFPAY | LOC: RAD 12:30 | PROVIDERS: ATTENDING PHYSICIAN Specialist; FAMILY PHYSICIAN Family Medicine | DX: N28.89 Other specified disorders of kidney and ureter (principal) | CPT/HCPCS: 74170; Q9967 ==